=== PATIENT | female | born 1985 | race Two or more races ===

== ENCOUNTER 2016-11-14 20:27 | Emergency (ER) | payer MEDICAID ==
[~2016-11-14] VITALS: Ht 157.5 cm; Wt 54.4 kg
--- NOTE | 2016-11-14 20:32 | NUR ---
BB RA; RIGHT SEIDED BODY PAIN X 1 DAY THAT RADIATES TO RIGHT LEG. PT AOX4 TOGOLESE SPEAKING, HOMIESHAES EMT AT BEDSIDE FOR TRANSLATION. RR EVEN AND UNLABORED. NO SOB NOTED. NAD NOTED. NO NVD AT THIS TIME. PT GOWNED AND PLACED ON MONITOR. WAITING FOR MD BOYER. PT ALSO MENTIONED PAIN AT SITE OF WHICH WAS DONE ON October. SITE CLEAN. NO S/S INFECTION
--- NOTE | 2016-11-14 20:38 | NUR ---
PAC GREGORY AT BEDSIDE FOR EVAL.
[2016-11-14 20:50] LABS: BASOPHILS # (AUTO) 0.1 /CMM (0.0-0.2); BASOPHILS % (AUTO) 0.5 % (0.0-2.0); EOSINOPHILS % (AUTO) 0.3 % (0.0-6.0); HEMATOCRIT 42 % (33-45); LYMPHOCYTES # (AUTO) 0.8 /CMM (0.8-4.8); LYMPHOCYTES % (AUTO) 7.3 % (20.0-44.0); MEAN CORPUSCULAR HEMOGLOBIN 31 PG (26.0-33.0); MEAN CORPUSCULAR HGB CONC 33 g/dl (31.0-36.0); MEAN CORPUSCULAR VOLUME 93 fL (82-100); MONOCYTES # (AUTO) 0.4 /CMM (0.1-1.30); MONOCYTES % (AUTO) 3.9 % (2.0-12.0); NEUTROPHILS # (AUTO) 9.3 /CMM (1.8-8.9); PLATELET COUNT (AUTO) 207 /CMM (150-450); RDW COEFFICIENT OF VARIATION 11.8 (11.5-15.0); RED BLOOD CELL COUNT(AUTO) 4.53 MIL/uL (4.0-5.2); WHITE BLOOD COUNT (AUTO) 10.6 K/uL (4.3-11.0)
--- NOTE | 2016-11-14 20:50 | NUR ---
PT AMBULATORY TO RESTROOM, URINE COLLECTED. 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
[2016-11-14] MEDS ORDERED: MORPHINE SULFATE INJ 4 MG/ML DISP.SYRIN ONE (20:53)
[2016-11-14] MEDS ORDERED: MORPHINE SULFATE INJ 2 MG/ML DISP.SYRIN ONE (20:53)
[2016-11-14] MEDS ORDERED: ONDANSETRON HCL/PF 4 MG/2 ML VIAL ONE (20:54)
[2016-11-14] MEDS ORDERED: IV NS 0.9% 1,000 ML ONE (20:54)
[2016-11-14] MEDS ORDERED: IV SET PRIMARY PUMP SET 1 EA INFUS.SET MC ONE ×2 (20:54→21:38)
[2016-11-14 20:58] LABS: CALCIUM, SERUM 8.3 mg/dL (8.5-10.1); CREATININE 0.7 mg/dL (0.6-1.3); POTASSIUM 3.9 mmol/L (3.5-5.1)
[2016-11-14] MEDS ORDERED: IV NS 0.9% 1,000 ML BAG IV ONE (21:00)
[2016-11-14] MEDS ORDERED: MORPHINE SULFATE INJ 2 MG/ML DISP.SYRIN IV ONE (21:00)
[2016-11-14] MEDS ORDERED: ONDANSETRON HCL/PF 4 MG/2 ML VIAL IVP ONE (21:00)
[2016-11-14 21:03] LABS: APPEARANCE,URINE Clear (CLEAR); BILIRUBIN,URINE Negative (NEGATIVE); BLOOD, URINE Moderate Ery/uL (NEGATIVE); COLOR,URINE Yellow (YELLOW); KETONES,URINE Negative (NEGATIVE); LEUKOCYTE ESTERASE ,URINE Moderate (NEGATIVE); NITRITE, URINE Negative (NEGATIVE); PROTEIN,URINE Negative (NEGATIVE); UGLUCOSE Negative (NEGATIVE); UROBILINOGEN,URINE 0.2 EU/dL (0.2)
[2016-11-14 21:04] LABS: ALBUMIN 3.5 g/dL (3.4-5.0); BILIRUBIN,DIRECT 0.1 mg/dL (0.0-0.2); BILIRUBIN,TOTAL 0.5 mg/dL (0.2-1.0); TOTAL PROTEIN, SERUM 7.1 g/dL (6.4-8.2)
[2016-11-14 21:06] LABS: PREGNANCY TEST URINE QUAL NEGATIVE (NEGATIVE)
--- NOTE | 2016-11-14 21:15 | NUR ---
PT TO CT.
[2016-11-14 21:24] LABS: BACTERIA,URINE Few /HPF (None Seen); SQUAMOUS EPITHELIAL CELL,UR Moderate /HPF (None Seen)
[2016-11-14] MEDS ORDERED: CEFTRIAXONE 1 G in IV D5W 50 ML IV ONE (21:30)
--- NOTE | 2016-11-14 21:34 | NUR ---
PT RETURNED FROM CT.
[2016-11-14] MEDS ORDERED: CEFTRIAXONE 1GM BAG (ER ONLY) 50 ML IV ONE (21:38)
--- NOTE | 2016-11-14 22:16 | NUR ---
IV removed. Catheter intact and site benign. Pressure and 4x4 applied to site. No bleeding noted. Patient discharged to home in stable condition. Written and verbal after care instructions given. Patient verbalizes understanding of instruction. ambulatory with a steady gait. instructed not to drive. pt verbalize understanding. pt accompanied by family
[2016-11-14 22:17] VITALS: BP 116/78
== END 2016-11-14 22:18 | disposition home or self-care (01) ==
LOC: ER 20:28
DX: O86.21 Infection of kidney following delivery (principal)
CPT/HCPCS: 36415; 74176; 80048; 80076; 81001; 83690; 84703; 85025; 87086; 96361; 96365; 96375; 99285; A4606; J0696; J2270 ×2; J2405; J7030; Z7610; 81000-TC